=== PATIENT | female | born 1980 | race Caucasian/White ===

== ENCOUNTER 2018-11-26 17:52 | Outpatient (REF) | payer BC, SELFPAY ==
--- NOTE | 2018-11-26 17:30 | PAPFT_PTH ---
PATIENT: Elizabeth Granger LOC: [facility] U#:[id number] AGE/SX: 38/F ROOM: RE11/26/[address]: Charlene Anton : 1980 BED: DIS: 11/26/2018 SPEC #: [id number] RECD: 11/27/18 12:48 STATUS: TARAN RENadia #: [id number] MARY ANN: 11/26/18 17:[address]: Charlene Anton DEPT: REPLACED BY [facility] Cytology RECD BY: Tamie Alvarado ENTERED: 11/27/18 12:48 SP TYPE: PAPFT OTHR DR: Israel Hoover Tissues: 1 - CX/ENDOCX FOR PAP SMEARS Procedures: PAP THIN PREP/[facility] Screening HPV DNA PROBE Comments: [id number]
[2018-11-26 22:16] LABS: Abs Immature Grans 0.01 k/cumm (0.0-0.09); Absolute Basophil Count 0.01 k/cumm (0.0-0.2); Absolute Eosinophil Count 0.06 k/cumm (0.0-0.7); Absolute Lymphocyte Count 1.83 k/cumm (1.2-3.4); Absolute Monocyte Count 0.39 k/cumm (0.11-0.7); Absolute Neutrophil Count 2.38 k/cumm (1.2-6.7); Basophils % 0.2; Eosinophils % 1.3; HCT 37.1 % (36.0-46.0); HGB 12.5 g/dL (12.0-15.5); Immature Grans % 0.2; Lymphocytes % 39.1; Mean Corp. HGB Concentration 33.7 g/dL (32.0-36.0); Mean Corpuscular Hemoglobin 29.1 pg (27.0-33.0); Mean Corpuscular Volume 86.5 fL (80-95); Mean Platelet Volume 11.3 fL (8.0-11.0); Monocytes % 8.3; Neutrophils % 50.9; Platelet Count 198 x1000/uL (130-400); RBC 4.29 m/cumm (4.00-5.20); RBC Distribution Width 12.5 % (11.7-14.6); White Blood Cell Count 4.68 k/cumm (4.4-10.8)
[2018-11-26 23:15] LABS: ALT 20 U/L (12-78); AST 20 U/L (15-37); Albumin 4.3 g/dL (3.4-5.0); Alkaline Phosphatase 87 U/L (46-116); Anion Gap 8.5 mmol/L (3-11); BUN 15 mg/dL (7-18); Bilirubin, Total 0.3 mg/dL (0.2-1.0); CO2 30.5 mmol/L (21.0-32.0); CREATININE 0.84 mg/dL (0.55-1.02); Calcium 9.1 mg/dL (8.5-10.1); Chloride 103 mmol/L (98-107); Glucose 89 mg/dL (70-100); Potassium 3.7 mmol/L (3.5-5.1); Sodium 142 mmol/L (136-145); TSH (W/Ref FT4) 1.23 uIU/mL (0.358-3.74); Total Protein 7.8 g/dL (6.4-8.2); Vitamin B12 424 pg/mL (193-986)
== END 2018-11-26 18:12 ==
LOC: NCHCN 17:52
PROVIDERS: PCP Internal Medicine; Visit Provider Nurse Practitioner Family
DX: Z00.00 Encounter for general adult medical examination without abnormal findings (principal); F43.21 Adjustment disorder with depressed mood; R41.3 Other amnesia; M25.559 Pain in unspecified hip; M54.9 Dorsalgia, unspecified; N39.3 Stress incontinence (female) (male); R06.01 Orthopnea; N89.8 Other specified noninflammatory disorders of vagina; Z12.4 Encounter for screening for malignant neoplasm of cervix; Z11.51 Encounter for screening for human papillomavirus (HPV); Z01.419 Encounter for gynecological examination (general) (routine) without abnormal findings
CPT/HCPCS: 80053; 88142; 82607; 84443; 85025; 87624

== ENCOUNTER 2024-10-16 15:30 | Outpatient (CLI) | payer BC, SELFPAY ==
--- NOTE | 2024-10-16 13:30 | DI.RAD_ITS ---
Exam(s) XR KNEE LT 3V AP,LAT,OLIVE EXAM: XR KNEE LT 3V AP,LAT,OLIVE CLINICAL HISTORY: LEFT KNEE PAIN. TECHNIQUE: 2D digital imaging was performed. Three views. COMPARISON: No exams were available for comparison FINDINGS: BONES: No acute fracture is present. No bony destructive lesion is seen. Hardware related to ACL r epair in distal femur and proximal tibia. JOINTS: The knee is normally aligned. No joint effusion is seen. Joint spaces are maintained. SOFT TISSUE: Normal. IMPRESSION: Postoperative changes of ACL repair. DATA REPOSITORY: RADIATION DOSE DELIVERED:
== END 2024-10-16 15:31 | disposition home or self-care (01) ==
LOC: DIORS 15:30
PROVIDERS: PCP Nurse Practitioner Family; Visit Provider Student in an Organized Health Care Education/Training Program
DX: M25.562 Pain in left knee (principal); Z98.890 Other specified postprocedural states
CPT/HCPCS: 73562

== ENCOUNTER 2024-11-14 01:44 | Outpatient (CLI) | payer BC, SELFPAY ==
--- NOTE | 2024-11-14 06:15 | DI.MRI_ITS ---
Exam(s) MR LOWER JOINT LT WO EXAM: MR LOWER JOINT LT WO CLINICAL HISTORY: L KNEE INTERNAL DERANGEMENT,h/o reconstruction of ant cruciate ligament,tea TECHNIQUE: Multiplanar multisequence MRI of the knee was performed. COMPARISON: CR XR KNEE LT 3V AP,LAT,OLIVE from 10/16/2024 FINDINGS: EFFUSION: A small joint effusion. There is a thin Gamez cyst in the medial popliteal fossa measuring 3 cm length by 0.2 cm x 0.3 cm MARROW:There is no evidence of fracture, bone contusion, nor osteochondral defects.. There are no si gnificant osseous lesions. PATELLOFEMORAL COMPARTMENT: The quadriceps tendon is intact. The patellar ligament is intact. There is no significant thinning of the retropatellar cartilage. No evidence of fissure nor signific ant chondral defect. No osteochondral defect at this level.There is no intraosseous signal to sugges t recent patellar dislocation. There are no patellar retinacular tears. CRUCIATE LIGAMENTS: The anterior cruciate graft appears intact. However, there is a ligamentous appea ring signal abnormality extending through the posterior aspect of the anterior intra-articular Hoffa fat pad from the tibial plateau anterior to the graft to the inferior aspect of the patella. This may just represent postsurgical scarring versus an element of splitting of the ACL graft. Posterior cruciate ligament exhibits mild signal abnormality approximately at its insertional aspect upon inner aspect of the medial femoral condyle, consistent with mild partial tearing. MEDIAL COMPARTMENT/MEDIAL MENISCUS: There is some myxoid degeneration signal in the posterior horn of the medial meniscus which does not violate an articular surface. Anterior horn of the medial menisc us appears intact although the inner 3rd is partially obscured by artifact from the tibial fastener d evice. The articular cartilage over the medial femoral condyle exhibits only minimal thinning without promin ent chondral defects and no evidence of osteochondral defect nor subarticular edema and there are no marginal osteophytes. MEDIAL COLLATERAL LIGAMENT: Intact. LATERAL COMPARTMENT/LATERAL MENISCUS: There is no evidence of lateral meniscal tear.There are no emigdio dral defects, osteochondral defects, subarticular marrow edema, nor osteophytes evident. ILIOTIBIAL BAND: Intact LATERAL COLLATERAL LIGAMENT COMPLEX: The fibular collateral ligament is intact. The biceps femoris t endon is intact.Popliteus muscle and tendon are intact. IMPRESSION: 1. There has been prior ACL reconstruction graft surgery (1995). The graft appears intact. However, there is a linear structure obliquely orientated which extends from the tibial plateau just anterior to the graft insertion site and extends upwards in oblique fashion within the posterior aspect of the intra-articular Hoffa fat almost to the level of the posterior patella. This may just represent scar ring but another possibility would be that the more anterior aspect of the graft has split from the p arent graft and is displaced anteriorly. There are no prior MRI scans in our PACS for comparison 2. Posterior cruciate ligament exhibits some mild abnormal signal proximally at its insertion upon th e inner aspect of the medial femoral condyle, consistent with an element of partial tearing at this l evel. The remainder of the PCL appears unremarkable. 3. There are no meniscal tears nor collateral ligament tears. 4. No significant osteoarthritic degenerative changes in all 3 compartments. No subarticular bone ed luis. No osteochondral defects. No osteophytes. DATA REPOSITORY:
--- NOTE | 2024-11-14 10:59 | DI.VRAD_ITS ---
PROCEDURE INFORMATION: Exam: MR Left Lower Extremity Joint Without Contrast, Knee Exam date and time: 11/14/2024 8:45 AM Age: 44 years old Clinical indication: Pain; Knee; Left; Prior surgery; Surgery date: 6+ months; Surgery type: Acl repair 1995 TECHNIQUE: Imaging protocol: Magnetic resonance imaging of the left lower extremity joint without contrast. Exam focused on the knee. COMPARISON: CR XR KNEE LT 3V AP,LAT,OLIVE 10/16/2024 1:48 PM FINDINGS: Bones/joints: Small knee joint effusion. Mild synovial thickening Periarticular cysts: Tiny popliteal cyst. Medial meniscus: Minimal intrasubstance degenerative signal in the posterior horn of the medial meniscus. Lateral meniscus: Unremarkable. No tear. Anterior cruciate ligament: Postoperative changes of previous ACL reconstruction. The ACL graft appears intact and in good position. Posterior cruciate ligament: Heterogeneous appearance of the proximal posterior cruciate ligament consistent with partial tearing. Medial capsule and supporting structures: Proximal medial gastrocnemius and distal semimembranosus enthesopathy. Moderate chondromalacia central trochlear groove. Lateral capsule and supporting structures: Unremarkable. No tear. Extensor mechanism of knee: Thickening of the patellar tendon could be due to previous surgery or from chronic partial tearing. Thickening of the quadriceps tendon could be due to prior surgery or a tearing. Soft tissues: Unremarkable. IMPRESSION: 1. ACL graft appears intact and in good position. 2. Probable slight partial tearing of proximal PCL 3. Probable chronic partial tearing or postoperative changes of the quadriceps tendon and patellar tendon 4. Small knee joint effusion and popliteal cyst 5. Mild synovial thickening 6. Moderate chondromalacia trochlear groove Dictated and Authenticated by: Sunshine Perry MD. Ordering:ANDREEA Grimes MD
== END 2024-11-14 02:04 ==
LOC: DI 01:45
PROVIDERS: PCP Nurse Practitioner Family; Visit Provider Student in an Organized Health Care Education/Training Program
DX: Z98.890 Other specified postprocedural states (principal); M23.92 Unspecified internal derangement of left knee
CPT/HCPCS: 73721

== ENCOUNTER 2025-03-25 19:22 | Outpatient (REF) | payer BC, SELFPAY ==
--- NOTE | 2025-03-25 12:30 | PAPFT_PTH ---
PATIENT: Elizabeth Granger LOC: [facility]#:[id number] AGE/SX: 44/F ROOM: RE03/25/[address]: Charlene Anton : 1980 BED: DIS: 03/25/2025 SPEC #: [id number] RECD: 03/26/25 13:22 STATUS: TARAN RENadia #: [id number] MARY ANN: 03/25/25 12:[address]: Charlene Anton DEPT: [facility] Cytology RECD BY: Tamie Alvarado Tissues: 1 - CX/ENDOCX FOR PAP SMEARS Procedures: PAP THIN PREP/[facility] Screening HPV DNA PROBE Comments: [id number] (HPV 16 & 18/45)
[2025-03-25 22:08] LABS: ALT 27 U/L (14-59); AST 26 U/L (15-37); Albumin 4.6 g/dL (3.4-5.0); Alkaline Phosphatase 116 U/L (46-116); Anion Gap 4.7 mmol/L (3-11); BUN 18 mg/dL (7-18); Bilirubin, Total 0.6 mg/dL (0.2-1.0); CO2 31.3 mmol/L (21.0-32.0); CREATININE 0.8 mg/dL (0.55-1.02); Calcium 9.7 mg/dL (8.5-10.1); Chloride 105 mmol/L (98-107); Estimated GFR 91.97 (mL/min/1.73m2); Glucose 98 mg/dL (74-106); Potassium 4.1 mmol/L (3.5-5.1); Sodium 141 mmol/L (136-145); Total Protein 7.9 g/dL (6.4-8.2)
== END 2025-03-25 19:23 | disposition home or self-care (01) ==
LOC: NCHCN 19:22
PROVIDERS: PCP Nurse Practitioner Family; Visit Provider Nurse Practitioner Family
DX: R79.89 Other specified abnormal findings of blood chemistry (principal); Z12.4 Encounter for screening for malignant neoplasm of cervix
CPT/HCPCS: 80053; 88142; 87624

== ENCOUNTER 2025-04-29 01:30 | Outpatient (CLI) | payer BC, SELFPAY ==
--- NOTE | 2025-04-29 08:50 | DI.MAMMO_ITS ---
Exam(s) MAMMO SCREENING EXAM: MAMMO SCREENING CLINICAL HISTORY: Screening, Z12.31 TECHNIQUE: Bilateral full field digital CC and MLO mammographic images were obtained with 3D tomosynthesis and utilizing computer aided detection (CAD). COMPARISON: This is a baseline examination. There are no priors for comparison. FINDINGS: Masses/Architectural Distortion: No suspicious masses or areas of architectural distortion are present. Microcalcifications: No suspicious pleomorphic-type are seen. There are benign type calcifications seen in both breasts including a large coarse calcification in the upper outer quadrant of the left breast. Skin Thickening/Nipple Retraction: None. IMPRESSION: 1. No evidence for malignancy is seen at this time. 2. Unless there is more urgent need, screening mammography is recommended, as per [place] [employer] guidelines. BI-RADS Category 2 - Benign Findings Breast Density - Category B - There are scattered areas of fibroglandular density. Breast density Category C or D implies that the patient has dense breast tissue. Dense breast tissue can make it harder to find cancer on a mammogram. Dense breast tissue is also associated with an increased risk of breast cancer. This information about the result of the mammogram report was provided to the patient to raise their awareness. Use this report when you speak with the patient about their risks for breast cancer, which includes their family history. At that time, you may recommend additional screening tests (Ultrasound or MRI) as these tests may add significant information. A negative radiographic report should not delay biopsy if a dominant or clinically suspicious mass is present. Up to ten percent of cancers are not identified on mammography. A negative report may reinforce clinical impression. Adenosis and dense breasts may obscure an underlying neoplasm. False positive reports average 6 to 10%. Patient will receive a letter notifying them of these results.
== END 2025-04-29 01:50 ==
LOC: DI 01:30
PROVIDERS: PCP Nurse Practitioner Family; Visit Provider Nurse Practitioner Family
DX: Z12.31 Encounter for screening mammogram for malignant neoplasm of breast (principal); R92.323 Mammographic fibroglandular density, bilateral breasts; D24.2 Benign neoplasm of left breast
CPT/HCPCS: 77063; 77067